=== PATIENT | female | born 1955 | race Two or more races ===

== ENCOUNTER 2020-08-30 10:13 | Emergency (ER) | payer OTHER ==
[~2020-08-30] VITALS: Ht 154.9 cm; Wt 61.9 kg
[2020-08-30] MEDS ORDERED: SODIUM CHLORIDE 0.9% 1,000 ML IV ONE ×2 (11:15)
[2020-08-30 11:41] LABS: Basophils # (auto) 0.1 10 ^3/uL (0-0.2); Eosinophils # (auto) 0.1 10 ^3/uL (0-0.8); Mean Corpuscular Hgb Conc. 33.9 g/dL (32.0-36.0); Monocytes # (auto) 0.7 10 ^3/uL (0-1.3); Monocytes % (auto) 9.5 % (0.0-12.0); Neutrophils # (auto) 5.7 10 ^3/uL (1.6-8.6); Red Blood Cells 4.06 10^6/uL (4.0-5.20)
[2020-08-30 11:42] LABS: Basophils % (auto) 0.9 % (0.0-2.0); Eosinophils % (auto) 1.9 % (0.0-7.0); Hematocrit 41.8 % (36.0-46.0); Hemoglobin 14.2 g/dL (12.2-16.2); Lymphocytes # (auto) 0.8 10 ^3/uL (0.4-5.4); Lymphocytes % (auto) 10.3 % (10.0-50.0); Mean Corpuscular Hemoglobin 34.9 pg (28.0-32.0); Neutrophils % (auto) 77.4 % (37.0-80.0); Platelet Count (auto) 410 10^3/uL (140-450); Red Cell Distribution Width 12.4 % (11.8-14.3); White Blood Cell 7.3 10^3/uL (4.4-10.8)
[2020-08-30 11:53] LABS: INR 0.99 (0.9-1.15); Partial Thromboplastin Time 25.7 sec (23.0-31.2)
[2020-08-30 11:54] LABS: Albumin 4.1 g/dL (3.4-5.0); Anion Gap 9 (5-15); Blood Urea Nitrogen 11 mg/dL (7-18); Carbon Dioxide 30 mmol/L (21-32); Chloride 93 mmol/L (98-107); Glucose 110 mg/dL (74-106); Sodium 132 mmol/L (136-145)
[2020-08-30 12:00] LABS: Alanine Aminotransferase 30 U/L (13-56); Alkaline Phosphatase 51 U/L (45-117); Aspartate Aminotransferase 25 U/L (15-37); BUN/Creatinine Ratio 15.1; Bilirubin, Total 0.6 mg/dL (0.2-1.0); GFR African American 103 mL/min; GFR Non-African American 85 mL/min
[2020-08-30] MEDS ORDERED: LABETALOL HCL 5 MG/ML 4ML SYRINGE IV ONE (12:00)
[2020-08-30] MEDS ORDERED: ONDANSETRON HCL 4 MG/2 ML VIAL IV ONE (12:00)
[2020-08-30 12:09] LABS: Potassium 2.7 mmol/L (3.5-5.1)
[2020-08-30 13:00] VITALS: BP 177/70
[2020-08-30] MEDS ORDERED: POTASSIUM EFFERVESENT TAB 25 MEQ PO ONE (13:15)
[2020-08-30 14:03] LABS: Urine Amorphous Crystal FEW /hpf (None Seen); Urine Bacteria NONE SEEN /hpf (None Seen); Urine Blood Negative /uL (Negative); Urine Specific Gravity 1.027 (1.001-1.035); Urine WBC 3 /hpf (0 - 5)
== END 2020-08-30 14:33 | disposition home or self-care (01) ==
LOC: ER 10:13
DX: K52.9 Noninfective gastroenteritis and colitis, unspecified (principal); E86.0 Dehydration; I10 Essential (primary) hypertension; Z88.0 Allergy status to penicillin; Z20.828 Contact with and (suspected) exposure to other viral communicable diseases
CPT/HCPCS: 36415; 71045; 80053; 81001; 83880; 84484; 85025; 85610; 85730; 87426; 96361; 96374; 96375; 99285; C9803; J2405; J3490; J7030; U0003